=== PATIENT | female | born 1980 | race African-American/Black ===

== ENCOUNTER 2018-05-13 21:36 | Emergency (ER) | payer OTHER ==
[~2018-05-13] VITALS: Ht 170.2 cm; Wt 70.8 kg
[~2018-05-13 21:36] MED LIST: AZITHROMYCIN250 MG ORAL; IBUPROFEN800 MG ORAL; PENICILLIN V P500 MG PO; RANITIDINE HCL150 MG ORAL
[2018-05-13 21:55] VITALS: BP 130/86
--- NOTE | 2018-05-13 22:12 | Emergency Room Report ---
History of Present Illness General Chief Complaint: Sore Throat Source: Patient Present Illness HPI Patient presents with complaints of sore throat and irritation to bilateral eyebrows Patient reports that the sore throat has been ongoing for the past several days Denies any fevers denies any chest pain or shortness of breath Pain is worse with swallowing 6 out of 10 Patient also reports that she had her eyebrows tented And soon after has noticed increased irritation and scaling Denies any visual changes Denies any posterior neck pain or photophobia Allergies: Coded Allergies: No Known Allergies (Unverified , 11/12/14) Patient History Past Medical History: see triage record Pertinent Family History: none Last Menstrual Period: 2 weeks ago Now: No Reviewed Nursing Documentation: PMH: Agreed; PSxH: Agreed Nursing Documentation-PMH Past Medical History: No Stated History Review of Systems All Other Systems: negative except mentioned in HPI Physical Exam Vital Signs Date Time Temp Pulse Resp B/P (MAP) Pulse Ox O2 Delivery O2 Flow Rate FiO2 05/13/18 21:44 98.9 103 18 130/86 96 Room Air 99.0 Sp02 EP Interpretation: reviewed, normal General Appearance: well appearing, no apparent distress Head: normocephalic, atraumatic Eyes: bilateral eye PERRL ENT: normal voice, uvula midline, pharyngeal erythema, tonsillar exudate Neck: supple Respiratory: chest non-tender, lungs clear Cardiovascular #1: regular rate, rhythm Gastrointestinal: non tender, soft Musculoskeletal: normal inspection, back normal Neurologic: alert, oriented x3 Skin: other - Contact irritation to bilateral eyebrows mild localized erythema along with scaling of some of the skin, no fluctuance Lymphatic: no adenopathy Medical Decision Making Diagnostic Impression: Primary Impression: Pharyngitis Additional Impression: Contact dermatitis ER Course Given the patient's exam and findings she has Findings consistent with pharyngitis likely bacterial the eyebrows also shows some contact dermatitis and irritation Patient will have short duration of steroids for the eyebrow region She was discussed regarding the side effects of prolonged use on the facial area And she is stable for initial conservative outpatient trial Last Vital Signs Date Time Temp Pulse Resp B/P (MAP) Pulse Ox O2 Delivery O2 Flow Rate FiO2 05/13/18 21:55 99.0 18 130/86 96 Room Air 99.0 05/13/18 21:44 103 Status: improved Disposition: HOME, SELF-CARE Condition: Improved Additional Instructions: Patient is provided with the discharge instructions notified to follow up with primary doctor in the next 2-3 days otherwise return to the er with any worsening symptoms. Please note that this report is being documented using [employer] technology. This can lead to erroneous entry secondary to incorrect interpretation by the dictating instrument. Kyung Garcia DO May 13, 2018 22:12
[2018-05-13] MEDS ORDERED: Dexamethasone Elixir 0.25mg/2.5ml ORAL ONE (22:15)
[2018-05-13] MEDS ORDERED: AUGMENTIN 875-1 EAC1 ORAL (22:25)
[2018-05-13] MEDS ORDERED: HYDROCORTISONE-30 GM TOPIC (22:25)
[2018-05-13] MEDS ORDERED: IBUPROFEN600 MG ORAL (22:25)
[2018-05-13 22:41] VITALS: BP 127/80
== END 2018-05-13 22:41 | disposition home or self-care (01) ==
LOC: EMR 21:59
DX: J02.9 Acute pharyngitis, unspecified (principal); L25.9 Unspecified contact dermatitis, unspecified cause
CPT/HCPCS: 99283

== ENCOUNTER 2018-05-27 21:04 | Emergency (ER) | payer OTHER ==
[~2018-05-27] VITALS: Ht 170.2 cm; Wt 70.8 kg
[~2018-05-27 21:04] MED LIST changes: +AUGMENTIN 875-1 EAC1 ORAL; +HYDROCORTISONE-30 GM TOPIC; +IBUPROFEN600 MG ORAL
--- NOTE | 2018-05-27 21:29 | Emergency Room Report ---
History of Present Illness General Chief Complaint: Sore Throat Source: Patient Present Illness HPI Is a 38-year-old female with no significant past medical history. She presents with chief complaint of sore throat. She was here last week for exudative tonsillitis. She was prescribed amoxicillin. She only took 2 days and got better. She stopped and now pain came back again today. She said it's painful. Worse to swallow. Pain is 10 out of 10. She has nausea and vomiting. Oozing of voice. No fever or chills. No cough or congestion. No runny nose. Denies any other complaint. Allergies: Coded Allergies: No Known Allergies (Unverified , 11/12/14) Patient History Past Medical History: see triage record, old chart reviewed Past Surgical History: other Pertinent Family History: none Social History: Denies: smoking Last Menstrual Period: 05/20/18 Now: No Immunizations: other Reviewed Nursing Documentation: PMH: Agreed; PSxH: Agreed Nursing Documentation-PMH Past Medical History: No Stated History Review of Systems Eye: Denies: eye pain, blurred vision ENT: Reports: throat pain; Denies: ear pain, nose congestion, throat swelling Respiratory: Denies: cough, shortness of breath Cardiovascular: Denies: chest pain, palpitations Gastrointestinal: Denies: abdominal pain, diarrhea, nausea, vomiting Musculoskeletal: Denies: back pain, joint pain Skin: Denies: rash Neurological: Denies: headache, numbness Endocrine: Denies: increased thirst, increased urine Hematologic/Lymphatic: Denies: easy bruising All Other Systems: negative except mentioned in HPI Physical Exam Vital Signs Date Time Temp Pulse Resp B/P (MAP) Pulse Ox O2 Delivery O2 Flow Rate FiO2 05/27/18 21:08 98.9 93 16 135/95 96 Room Air 99.0 vitals normal Sp02 EP Interpretation: reviewed, normal General Appearance: well appearing, no apparent distress, alert Head: normocephalic, atraumatic Eyes: bilateral eye PERRL, bilateral eye EOMI ENT: hearing grossly normal, tonsillar swelling, pharyngeal erythema Neck: full range of motion, supple, no meningismus Respiratory: chest non-tender, lungs clear, normal breath sounds Cardiovascular #1: regular rate, rhythm, no murmur Gastrointestinal: normal bowel sounds, non tender, no mass, no organomegaly, no bruit, non-distended Musculoskeletal: back normal, gait/station normal, normal range of motion Psychiatric: mood/affect normal Skin: warm/dry Medical Decision Making Diagnostic Impression: Primary Impression: Acute infective tonsillitis Qualified Codes: J03.90 - Acute tonsillitis, unspecified ER Course Patient with acute tonsillitis. This may be strep versus viral. We will put her on different on antibiotics we will give her Diflucan for yeast infection. No evidence of peritonsillar abscess, retropharyngeal abscess or Tab angina. We'll discharge home. Last Vital Signs Date Time Temp Pulse Resp B/P (MAP) Pulse Ox O2 Delivery O2 Flow Rate FiO2 05/27/18 21:08 98.9 93 16 135/95 96 Room Air 99.0 Status: improved Disposition: HOME, SELF-CARE Condition: Stable Scripts Fluconazole (FLUCONAZOLE) 100 Mg Tablet 100 MG ORAL DAILY, #1 TAB 0 Refills Prov: He León MD 05/27/18 Ibuprofen* (MOTRIN*) 600 Mg Tablet 600 MG ORAL THREE TIMES A DAY, #30 TAB 0 Refills Prov: He León MD 05/27/18 Hydrocodone/Acetaminophen 5-325* (HYDROCODONE/ACETAMINOPHEN 5-325*) 1 Each Tablet 1 TAB ORAL Q6H PRN for For Pain, #15 TAB 0 Refills Prov: eH León MD 05/27/18 Clindamycin Hcl (CLINDAMYCIN HCL) 300 Mg Capsule 300 MG ORAL THREE TIMES A DAY, #21 CAP Prov: He León MD 05/27/18 Patient Instructions: Tonsillitis Additional Instructions: Increase fluids. Salt water gargle. Follow-up with your doctor in 7 days. Return if worse. He León MD May 27, 2018 21:29
[2018-05-27] MEDS ORDERED: Morphine Sulfate 4mg/ml Inj (IV USE ONLY) IVP ONE (21:30)
[2018-05-27] MEDS ORDERED: cefTRIAXone 1 GM in NS 55 ML IVPB ONE (21:30)
[2018-05-27] MEDS ORDERED: Dexamethasone 4mg/ml vial IVP ONE (21:30)
[2018-05-27 22:11] VITALS: BP 135/95
[2018-05-27 22:12] LABS: BASOPHILS % (AUTO) 1.2 % (0.0-2.0); EOSINOPHILS % (AUTO) 1.1 % (0.0-3.0); HEMATOCRIT 42.7 % (37.0-47.0); HEMOGLOBIN 14.6 G/DL (12.0-16.0); LYMPHOCYTES % (AUTO) 18.1 % (20.0-45.0); MEAN CORPUSCULAR VOLUME 93 FL (80-99); MONOCYTES % (AUTO) 6.6 % (1.0-10.0); PLATELET COUNT 346 K/UL (150-450); RED CELL DISTRIBUTION WIDTH 12.1 % (11.6-14.8); WHITE BLOOD COUNT 11.1 K/UL (4.8-10.8)
[2018-05-27 22:14] LABS: ANION GAP 11 mmol/L (5-15); BLOOD UREA NITROGEN 13 mg/dL (7-18); CALCIUM 9.5 MG/DL (8.5-10.1); CARBON DIOXIDE 27 MMOL/L (21-32); CHLORIDE 99 MMOL/L (98-107); CREATININE 0.8 MG/DL (0.55-1.30); POTASSIUM 3.5 MMOL/L (3.5-5.1); SODIUM 137 MMOL/L (136-145)
[2018-05-27] MEDS ORDERED: CLINDAMYCIN HC300 MG ORAL (22:21)
[2018-05-27] MEDS ORDERED: FLUCONAZOLE100 MG ORAL (22:21)
[2018-05-27] MEDS ORDERED: HYDROCODON-ACE1 EA15 ORAL (22:21)
[2018-05-27] MEDS ORDERED: IBUPROFEN600 MG ORAL (22:21)
[2018-05-27 22:31] VITALS: BP 115/75
== END 2018-05-27 22:30 | disposition home or self-care (01) ==
LOC: EMR 22:25
DX: J03.90 Acute tonsillitis, unspecified (principal); Z79.2 Long term (current) use of antibiotics
CPT/HCPCS: 36415; 80048; 85025; 96365; 96375; 99284; J0696; J1100; J2270; J2405

== ENCOUNTER 2020-02-24 23:16 | Emergency (ER) | payer BC, OTHER ==
[~2020-02-24] VITALS: Ht 170.2 cm; Wt 72.6 kg
[~2020-02-24 23:16] MED LIST changes: +CLINDAMYCIN HC300 MG ORAL; +FLUCONAZOLE100 MG ORAL; +HYDROCODON-ACE1 EA15 ORAL
[2020-02-24 23:30] VITALS: BP 148/89
[2020-02-24] MEDS ORDERED: Metoclopramide 10mg/2ml Inj IVP ONE (23:45)
[2020-02-24] MEDS ORDERED: DiphenhydrAMINE 50mg/ml Inj IVP ONE (23:45)
--- NOTE | 2020-02-24 23:48 | Emergency Room Report ---
History of Present Illness General Chief Complaint: General Complaint Source: Patient Present Illness HPI Patient presents with epigastric discomfort along with the worst anxiety attack that she is ever had. The anxiety has been intermittent for the last few days. Today she was unable to go to work because she had some vomiting in the morning. She feels that when she gets anxiety attacks it mainly hits her stomach. Tonight however it also led to shortness of breath and palpitations. He has never been evaluated for this and never received any counseling. She denies any suicidal or homicidal ideation. Yesterday she was drinking some champagne celebrating her mother's birthday in the morning. The day went well but she still finally felt anxious. She denies fevers or chills. She has no upper respiratory symptomatology. She also smokes cigarettes and also has been trying CBD oil and occasionally smoking marijuana. She denies other drugs. Last menstruation last week and normal for her. No sore throat, chest pain, diarrhea, dysuria, abdominal pain, joint pain, rashes, visual changes, dizziness, headache. 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 : 3 Para: 0 Reviewed Nursing Documentation: PMH: Agreed; PSxH: Agreed Nursing Documentation-PMH Past Medical History: No Stated History Review of Systems All Other Systems: negative except mentioned in HPI Physical Exam Vital Signs Date Time Temp Pulse Resp B/P (MAP) Pulse Ox O2 Delivery O2 Flow Rate FiO2 02/24/20 23:21 98.6 88 18 148/89 (108) 99 Room Air Sp02 EP Interpretation: reviewed, normal General Appearance: well appearing, no apparent distress, GCS 15 Head: normocephalic Eyes: bilateral eye normal inspection, bilateral eye PERRL, bilateral eye EOMI ENT: moist mucus membranes Neck: supple Respiratory: lungs clear, normal breath sounds Cardiovascular #1: regular rate, rhythm Cardiovascular #2: 2+ radial (R) Gastrointestinal: normal inspection, normal bowel sounds, non tender - Reported epigastric tenderness, no mass, non-distended Musculoskeletal: back normal, normal range of motion, gait/station normal Neurologic: alert, oriented x3, grossly normal Psychiatric: depressed affect, anxious Skin: no rash, warm/dry Medical Decision Making Diagnostic Impression: Primary Impression: Anxiety Additional Impression: Epigastric pain ER Course Patient presents with epigastric pain and anxiety. Differential includes GERD, gastritis, anxiety, electrolyte imbalance amongst others. Based on history and physical examination pulmonary embolus extremely unlikely. Evaluation with chest x-ray and labs. Treatment with IV hydration, Reglan, Benadryl and Pepcid. 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 Patient will be reevaluated with serial abdominal exams. Cardiac risk factors negative except for smoking. Alcohol and smoking may contribute to epigastric pain. EKG without injury. Chest x-ray clear. Labs unremarkable. Patient improved with treatment. Discussed findings and diagnosis with patient. Discussed treatment plan. No medical emergency at this time. Patient understands direction of treatment plan. Patient stable for outpatient observation and treatment. Laboratory Tests Test 02/24/20 23:50 02/25/20 01:30 White Blood Count 7.2 K/UL (4.8-10.8) Red Blood Count 4.57 M/UL (4.20-5.40) Hemoglobin 14.2 G/DL (12.0-16.0) Hematocrit 44.0 % (37.0-47.0) Mean Corpuscular Volume 96 FL (80-99) Mean Corpuscular Hemoglobin 31.0 PG (27.0-31.0) Mean Corpuscular Hemoglobin Concent 32.3 G/DL (32.0-36.0) Red Cell Distribution Width 13.1 % (11.6-14.8) Platelet Count 252 K/UL (150-450) Mean Platelet Volume 5.7 FL (6.5-10.1) L Neutrophils (%) (Auto) 51.6 % (45.0-75.0) Lymphocytes (%) (Auto) 36.8 % (20.0-45.0) Monocytes (%) (Auto) 8.6 % (1.0-10.0) Eosinophils (%) (Auto) 1.9 % (0.0-3.0) Basophils (%) (Auto) 1.2 % (0.0-2.0) Prothrombin Time 11.1 SEC (9.30-11.50) Prothrombin Time INR 1.0 (0.9-1.1) Activated Partial Thromboplast Time 30 SEC (23-33) Sodium Level 139 MMOL/L (136-145) Potassium Level 3.3 MMOL/L (3.5-5.1) L Chloride Level 102 MMOL/L (98-107) Carbon Dioxide Level 28 MMOL/L (21-32) Anion Gap 9 mmol/L (5-15) Blood Urea Nitrogen 14 mg/dL (7-18) Creatinine 1.1 MG/DL (0.55-1.30) Estimated Glomerular Filtration Rate > 60 mL/min (>60) Glucose Level 121 MG/DL (74-106) H Calcium Level 8.3 MG/DL (8.5-10.1) L Total Bilirubin 0.4 MG/DL (0.2-1.0) Aspartate Amino Transferase (AST) 26 U/L (15-37) Alanine Aminotransferase (ALT) 36 U/L (12-78) Alkaline Phosphatase 57 U/L (46-116) Total Protein 7.5 G/DL (6.4-8.2) Albumin 4.2 G/DL (3.4-5.0) Globulin 3.3 g/dL Albumin/Globulin Ratio 1.3 (1.0-2.7) Lipase 81 U/L (73-393) Human Chorionic Gonadotropin, Qual Negative (NEGATIVE) Urine Color Pale yellow Urine Appearance Clear Urine pH 7 (4.5-8.0) Urine Specific [place] 1.005 (1.005-1.035) Urine Protein Negative (NEGATIVE) Urine Glucose (UA) Negative (NEGATIVE) Urine Ketones Negative (NEGATIVE) Urine Blood Negative (NEGATIVE) Urine Nitrite Negative (NEGATIVE) Urine Bilirubin Negative (NEGATIVE) Urine Urobilinogen Normal MG/DL (0.0-1.0) Urine Leukocyte Esterase 1+ (NEGATIVE) H Urine RBC 0-2 /HPF (0 - 2) Urine WBC 0-2 /HPF (0 - 2) Urine Squamous Epithelial Cells Moderate /LPF (NONE/OCC) H Urine Bacteria Few /HPF (NONE) Rhythm Strip Diag. Results EP Interpretation: yes Rhythm: NSR, no PVC's, no ectopy Chest X-Ray Diagnostic Results Chest X-Ray Diagnostic Results : Chest X-Ray Ordered: Yes # of Views/Limited/Complete: 1 View Indication: Shortness of Breath EP Interpretation: Yes Interpretation: no consolidation, no effusion, no pneumothorax Impression: No acute disease Electronically Signed by: Electronically signed by Ibrahima Najera MD Last Vital Signs Date Time Temp Pulse Resp B/P (MAP) Pulse Ox O2 Delivery O2 Flow Rate FiO2 02/25/20 02:45 98.7 74 16 139/85 98 Room Air Status: improved Disposition: HOME, SELF-CARE Condition: Improved Scripts Hydroxyzine Pamoate (VISTARIL) 25 Mg Capsule 25 MG PO Q8HR PRN for anxiety, #10 CAP Prov: Ibrahima Najera MD 02/25/20 Famotidine* (Pepcid 20mg tablet*) 20 Mg Tablet 20 MG ORAL DAILY, #30 TAB 0 Refills Prov: Ibrahima Najera MD 02/25/20 Referrals: NOT CHOSEN IPA/,REFERRING (PCP) Ibrahima Najera MD Feb 24, 2020 23:48
[2020-02-25 00:01] LABS: BASOPHILS % (AUTO) 1.2 % (0.0-2.0); EOSINOPHILS % (AUTO) 1.9 % (0.0-3.0); HEMOGLOBIN 14.2 G/DL (12.0-16.0); LYMPHOCYTES % (AUTO) 36.8 % (20.0-45.0); MEAN CORPUSCULAR VOLUME 96 FL (80-99); MONOCYTES % (AUTO) 8.6 % (1.0-10.0); NEUTROPHILS % (AUTO) 51.6 % (45.0-75.0); PLATELET COUNT 252 K/UL (150-450); RED BLOOD COUNT 4.57 M/UL (4.20-5.40); RED CELL DISTRIBUTION WIDTH 13.1 % (11.6-14.8); WHITE BLOOD COUNT 7.2 K/UL (4.8-10.8)
[2020-02-25 00:11] LABS: ANION GAP 9 mmol/L (5-15); BLOOD UREA NITROGEN 14 mg/dL (7-18); CALCIUM 8.3 MG/DL (8.5-10.1); CARBON DIOXIDE 28 MMOL/L (21-32); CHLORIDE 102 MMOL/L (98-107); CREATININE 1.1 MG/DL (0.55-1.30); POTASSIUM 3.3 MMOL/L (3.5-5.1); SODIUM 139 MMOL/L (136-145)
[2020-02-25 00:15] LABS: ALANINE AMINOTRANSFERASE 36 U/L (12-78); ALBUMIN 4.2 G/DL (3.4-5.0); ALBUMIN/GLOBULIN RATIO 1.3 (1.0-2.7); ALKALINE PHOSPHATASE 57 U/L (46-116); ASPARTATE AMINO TRANSFERASE 26 U/L (15-37); BILIRUBIN,TOTAL 0.4 MG/DL (0.2-1.0)
[2020-02-25 01:00] VITALS: BP 140/75
[2020-02-25 01:42] LABS: APPEARANCE,URINE CLEAR; BILIRUBIN, URINE NEGATIVE (NEGATIVE); COLOR,URINE PALE YELLOW; GLUCOSE, URINE (UA) NEGATIVE (NEGATIVE); KETONES,URINE NEGATIVE (NEGATIVE); NITRITE,URINE NEGATIVE (NEGATIVE); PH,URINE 7 (4.5-8.0); PROTEIN,URINE NEGATIVE (NEGATIVE); UROBILINOGEN,URINE NORMAL MG/DL (0.0-1.0)
[2020-02-25 02:27] LABS: LEUKOCYTE ESTERASE ,URINE 1+ (NEGATIVE)
[2020-02-25] MEDS ORDERED: FAMOTIDINE20 MG ORAL (02:38)
[2020-02-25] MEDS ORDERED: VISTARIL25 M1 PO (02:38)
[2020-02-25 02:45] VITALS: BP 139/85
--- NOTE | 2020-02-25 12:18 | Diagnostic Imaging Report ---
Indication: Reason For Exam: ABD PAIN Technique: One view of the chest Comparison: none Findings: Lungs and pleural spaces are clear. Heart size is normal. Impression: No acute process
== END 2020-02-25 02:45 | disposition home or self-care (01) ==
LOC: EMR 23:35
DX: F41.9 Anxiety disorder, unspecified (principal); R10.13 Epigastric pain
CPT/HCPCS: 36415; 71045; 80053; 81003; 83690; 84703; 85025; 85610; 85730; 96361; 96374; 96375; 99284; J1200; J2765; J7030; S0028